=== PATIENT | male | born 1950 | race Caucasian/White ===

== ENCOUNTER 2024-09-08 07:13 | Outpatient (CLI) | payer MEDICARE, OTHER | END 2024-09-08 07:14 | disposition home or self-care (01) | LOC: BICMRI 07:13 | PROVIDERS: ATTEND Family Medicine | DX: M25.511 Pain in right shoulder (principal); M75.111 Incomplete rotator cuff tear or rupture of right shoulder, not specified as traumatic; M19.011 Primary osteoarthritis, right shoulder ==

== ENCOUNTER 2024-11-12 10:00 | Outpatient (CLI) | payer MEDICARE, OTHER | END 2024-11-12 10:01 | disposition home or self-care (01) | LOC: LABBT 10:00 | PROVIDERS: ATTEND Student in an Organized Health Care Education/Training Program | DX: Z01.818 Encounter for other preprocedural examination (principal); S46.011A Strain of muscle(s) and tendon(s) of the rotator cuff of right shoulder, initial encounter; M25.811 Other specified joint disorders, right shoulder; M19.011 Primary osteoarthritis, right shoulder | CPT/HCPCS: 71046; 93005; 93010 ==